=== PATIENT | female | born 1990 | race Two or more races ===

== ENCOUNTER 2016-06-24 05:28 | Emergency (ER) | payer MEDICAID ==
[~2016-06-24] VITALS: Ht 167.6 cm; Wt 62.1 kg
[2016-06-24 06:24] VITALS: BP 127/79
== END 2016-06-24 06:23 | disposition home or self-care (01) ==
LOC: ER 05:28
DX: J06.9 Acute upper respiratory infection, unspecified (principal)
CPT/HCPCS: 99283; A4606; Z7610

== ENCOUNTER 2017-07-03 21:26 | Emergency (ER) | payer MEDICAID ==
[~2017-07-03] VITALS: Ht 165.1 cm; Wt 86.2 kg
[2017-07-03 21:35] VITALS: BP 151/92
--- NOTE | 2017-07-03 21:40 | NUR ---
TO BED 9 A 27 YO FEMALE PT BIB FAMILY C/O HIGH BLOOD PRESSURE X 5 DAYS. PATIENT IS AAOX4, NAD NOTED. VSS. SKIN WARM AND DRY.
[2017-07-04 00:02] LABS: APPEARANCE,URINE SL CLOUDY (CLEAR); BILIRUBIN,URINE NEGATIVE (NEGATIVE); BLOOD, URINE 3+ Ery/uL (NEGATIVE); COLOR,URINE YELLOW (YELLOW); KETONES,URINE NEGATIVE (NEGATIVE); LEUKOCYTE ESTERASE ,URINE 3+ (NEGATIVE); NITRITE, URINE NEGATIVE (NEGATIVE); PH,URINE 6.5 (5.0-8.0); PROTEIN,URINE NEGATIVE (NEGATIVE); UGLUCOSE NEGATIVE (NEGATIVE); UROBILINOGEN,URINE 0.2 EU/dL (0.2)
[2017-07-04 00:04] LABS: BASOPHILS % (AUTO) 0.6 % (0.0-2.0); EOSINOPHILS # (AUTO) 0.2 /CMM (0.0-0.7); EOSINOPHILS % (AUTO) 2.6 % (0.0-6.0); HEMATOCRIT 42 % (33-45); HEMOGLOBIN 14.4 g/dL (11.5-14.8); LYMPHOCYTES # (AUTO) 2.6 /CMM (0.8-4.8); LYMPHOCYTES % (AUTO) 31.2 % (20.0-44.0); MEAN CORPUSCULAR HEMOGLOBIN 34 PG (26.0-33.0); MEAN CORPUSCULAR HGB CONC 34 g/dl (31.0-36.0); MEAN CORPUSCULAR VOLUME 100 fL (82-100); MONOCYTES # (AUTO) 0.7 /CMM (0.1-1.30); MONOCYTES % (AUTO) 8.8 % (2.0-12.0); NEUTROPHILS # (AUTO) 4.7 /CMM (1.8-8.9); NEUTROPHILS % (AUTO) 56.8 % (43.0-81.0); PLATELET COUNT (AUTO) 431 /CMM (150-450); WHITE BLOOD COUNT (AUTO) 8.3 K/uL (4.3-11.0)
[2017-07-04 00:15] LABS: BACTERIA,URINE None seen /HPF (None Seen); SQUAMOUS EPITHELIAL CELL,UR Few /HPF (None Seen)
[2017-07-04 00:20] LABS: CALCIUM, SERUM 9.7 mg/dL (8.5-10.1); CREATININE 0.6 mg/dL (0.6-1.3); POTASSIUM 3.7 mmol/L (3.5-5.1)
[2017-07-04 00:29] LABS: ALBUMIN 3.3 g/dL (3.4-5.0); BILIRUBIN,DIRECT 0.1 mg/dL (0.0-0.2); BILIRUBIN,TOTAL 0.4 mg/dL (0.2-1.0); TOTAL PROTEIN, SERUM 7.5 g/dL (6.4-8.2)
== END 2017-07-04 00:50 | disposition home or self-care (01) ==
LOC: ER 21:30
DX: O16.5 Unspecified maternal hypertension, complicating the puerperium (principal); O86.20 Urinary tract infection following delivery, unspecified
CPT/HCPCS: 36415; 80048-TC; 80076-TC; 81000-TC; 85025-TC; 87086-TC; A4606; Z7610

== ENCOUNTER 2019-04-06 11:23 | Emergency (ER) | payer MEDICAID, OTHER ==
[~2019-04-06] VITALS: Ht 165.1 cm; Wt 64.4 kg
[2019-04-06 11:51] VITALS: BP 122/84
--- NOTE | 2019-04-06 11:55 | NUR ---
bibhusband, both eye pain with discharges and itching x 7 days. Patient a/ox4, breathing even and unlabored, no sob noted. Needs attended.
== END 2019-04-06 13:35 | disposition home or self-care (01) ==
LOC: ER 11:27
DX: B99.9 Unspecified infectious disease (principal); H10.89 Other conjunctivitis; L03.213 Periorbital cellulitis; Z98.890 Other specified postprocedural states

== ENCOUNTER 2019-04-10 00:35 | Emergency (ER) | payer MEDICAID ==
[~2019-04-10] VITALS: Ht 165.1 cm; Wt 64.4 kg
--- NOTE | 2019-04-10 01:09 | NUR ---
PT BIBSELF C/O FACIAL NUMBNESS AND SWELLING. PT STATES "IT FEELS LIKE SOMETHING IS PULLING FROM THE BACK OF MY HEAD TO MY FACE" PT WAS SEEN AND DISCHARGED FROM [facility] 04/06/19 FOR SIMILAIR COMPLAINT, SWELLING RELIEVED FROM PREVIOUS VISIT. PT AAOX4. RESPIRATIONS EVEN AND UNLABORED. SKIN INTACT. NO NEURO DEFICITS NOTED AT THIS TIME. NO ACUTE DISTRESS NOTED AT THIS TIME. WILL CONTINUE TO MONITOR
--- NOTE | 2019-04-10 01:10 | NUR ---
MD AT BEDSIDE FOR EVALUATION
[2019-04-10] MEDS ORDERED: DEXAMETHASONE SOD PHOSPHATE 10 MG/ML VIAL ONE (01:18)
--- NOTE | 2019-04-10 01:23 | NUR ---
PT BROUGHT BY RADIOLOGY TO CT
[2019-04-10] MEDS ORDERED: DEXAMETHASONE SOD PHOSPHATE 4 MG/ML VIAL IM ONE (01:30)
--- NOTE | 2019-04-10 02:59 | NUR ---
Patient discharged to home in stable condition. Written and verbal after care instructions given. Patient verbalizes understanding of instruction.Pt ambulatory with a steady gait
[2019-04-10 03:00] VITALS: BP 123/77
== END 2019-04-10 03:00 | disposition home or self-care (01) ==
LOC: ER 00:38
DX: G50.1 Atypical facial pain (principal); Z98.890 Other specified postprocedural states
CPT/HCPCS: 70450; 96372; 99284; J1100